=== PATIENT | male | born 1950 | race Caucasian/White ===

== ENCOUNTER 2024-04-23 12:35 | Emergency (ER) | payer OTHER, MEDICARE ==
[2024-04-23] MEDS: Sodium Chloride 0.9% 1,000 ML IV ONE ×3 (12:40→18:00)
[2024-04-23 12:49] LABS: EOSINOPHILS ABSOLUTE AUTO 0.01 K/uL (0.00-0.50); EOSINOPHILS PERCENT AUTO 0.2 % (0.0-5.0); HEMATOCRIT 31.1 % (39.0-49.0); HEMOGLOBIN 9.8 g/dL (13.1-16.8); LYMPHOCYTES ABSOLUTE AUTO 0.11 K/uL (0.50-3.50); MEAN CORPUSCULAR HEMOGLOBIN 34.6 pg (28.2-33.3); MEAN CORPUSCULAR HGB CONC 31.5 g/dL (31.7-36.0); MEAN CORPUSCULAR VOLUME 109.9 fL (84.0-98.0); MONOCYTES ABSOLUTE AUTO 0.66 K/uL (0.00-1.00); NEUTROPHILS PERCENT AUTO 85.8 % (45.0-80.0); PLATELET COUNT,PLT 69 K/uL (150-350); RED BLOOD CELL COUNT 2.83 M/uL (4.33-5.41); RED CELL DISTRIBUTION WIDTH 13.9 % (11.2-14.1); WHITE BLOOD CELL COUNT,WBC 5.5 K/uL (4.0-10.2)
[2024-04-23 13:03] LABS: INR 1.1 (0.9-1.1); PROTHROMBIN TIME 10.7 SEC (9.0-11.1)
[2024-04-23 13:03] LABS: LACTIC ACID 1.6 mmol/L (0.4-2.0)
[2024-04-23 13:12] LABS: ALANINE AMINOTRANSFERASE,ALT 12 U/L (12-78); ALBUMIN 3.1 g/dL (3.4-5.0); ALKALINE PHOSPHATASE 132 IU/L (46-116); ASPARTATE AMNIOTRANSFERASE,AST 17 U/L (15-37); BILIRUBIN TOTAL 0.8 mg/dL (0.2-1.0); BLOOD UREA NITROGEN,BUN 40 mg/dL (7-18); CALCIUM 8.2 mg/dL (8.5-10.1); CARBON DIOXIDE,CO2 25.8 mmol/L (21.0-32.0); CHLORIDE,CL 103 mmol/L (98-107); CREATININE 1.64 mg/dL (0.51-1.17); GLUCOSE RANDOM 99 mg/dL (70-99); PRO B-TYPE NATRIUR PEPT,BNPPRO 683 pg/mL (0-125); PROTEIN TOTAL,TP 6.4 g/dL (6.4-8.2); SODIUM,NA 137 mmol/L (136-145)
[2024-04-23 13:21] LABS: ANION GAP 15.2 meq/L (7-15); ESTIMATED GFR 43 mL/min (>=60)
[2024-04-23] MEDS ORDERED: Glucagon,Human Recombinant 1 MG Vial IM PRN (13:35)
[2024-04-23] MEDS ORDERED: 50% Dextrose in Water 50 ML Syringe IVPUSH PRN (13:35)
[2024-04-23] MEDS: Calcium Gluconate 10% 1 GM/10 ML SDV IVPUSH ONE (13:53)
[2024-04-23] MEDS: 50% Dextrose in Water 50 ML Syringe IVPUSH ONE (14:01)
[2024-04-23] MEDS: Insulin Regular, Human 100 Units/ML 3 ML Vial IV ONE (14:07)
[2024-04-23 15:22] LABS: APPEARANCE,URINE CLEAR; BILIRUBIN,URINE NEGATIVE (NEGATIVE); COLOR,URINE YELLOW; GLUCOSE,URINE NEGATIVE (NEGATIVE); KETONES,URINE NEGATIVE (NEGATIVE); LEUKOCYTE ESTERASE,URINE NEGATIVE (NEGATIVE); NITRITE,URINE NEGATIVE (NEGATIVE); OCCULT BLOOD,URINE NEGATIVE (NEGATIVE); PROTEIN,URINE TRACE mg/dL (NEGATIVE); UROBILINOGEN,URINE 0.2 E.U./dL (0.2-1.0)
[2024-04-23 15:23] LABS: AMORPHOUS SEDIMENT,URINE MODERATE /HPF (0/HPF); BACTERIA,URINE NOT SEEN /HPF (NONE TO FEW); EPITHELIAL CELLS,URINE FEW /LPF; MUCUS,URINE FEW /LPF (NEGATIVE); RBC,URINE 0-5 /HPF; WBC,URINE 0-5 /HPF
[2024-04-23] MEDS: Sodium Chloride 0.9% 250 ML IV ONE (15:59)
[2024-04-23] MEDS: Norepinephrine Bit/D5W Premix 250 ML IV SCH (16:04)
[2024-04-23 16:05] LABS: CALCIUM 7.9 mg/dL (8.5-10.1); CARBON DIOXIDE,CO2 23.6 mmol/L (21.0-32.0); CREATININE 1.6 mg/dL (0.51-1.17); EST CRCL DRUG DOSING (CG) 30.97 mL/min
[2024-04-23 16:08] LABS: POTASSIUM,K 5.6 mmol/L (3.5-5.1)
[2024-04-23 16:35] LABS: O2 DELIVERY DEVICE NASAL CANNULA; O2 SATURATION VENOUS 42 %; PCO2 VENOUS 52 mmHG (41-51); PH,VENOUS 7.25 (7.31-7.41); PO2 VENOUS 28 mmHG
[2024-04-23 16:36] LABS: BASE EXCESS VENOUS -5 mmol/L ((-2)-3); BICARBONATE,VENOUS 23 mmol/L (23-28)
[2024-04-23] MEDS ORDERED: Sodium Chloride 0.9% 500 ML IV SCH (18:00)
[2024-04-23] MEDS: Piperacillin/Tazobactam 2.25 GM in Sodium Chloride 0.9% 100 ML IV ONE (19:47)
[2024-04-23] MEDS: levETIRAcetam 500 MG/5 ML SDV IVPUSH ONE (19:47)
[2024-04-23] MEDS: Sodium Chloride 0.9% 10 ML Syringe FLUSH PRN (19:48)
[2024-04-23] MEDS: Sodium Chloride 0.9% 500 ML IV ONE (19:48)
[2024-04-23] MEDS: Piperacillin/Tazobactam 4.5 GM in Sodium Chloride 0.9% 100 ML IV SCH ×2 (19:48→19:54)
[2024-04-23 21:24] VITALS: BP 100/65; PULSE 55
== END 2024-04-23 20:21 | disposition critical access hospital (66) ==
LOC: LL.ED 12:35
DX: E87.5 Hyperkalemia (principal); I10 Essential (primary) hypertension; K21.9 Gastro-esophageal reflux disease without esophagitis; M19.90 Unspecified osteoarthritis, unspecified site; E78.00 Pure hypercholesterolemia, unspecified; Z88.1 Allergy status to other antibiotic agents; Z88.5 Allergy status to narcotic agent; Z88.8 Allergy status to other drugs, medicaments and biological substances; Z79.82 Long term (current) use of aspirin; Z79.899 Other long term (current) drug therapy
CPT/HCPCS: 36415; 70450; 71045; 80048; 80053; 81001; 82803; 82947; 83605; 83880; 84132; 84484; 85025; 85610; 87040; 93005; 93010; 96361; 96365; 96366; 96368; 96375; 99284; 99285-25; J0612; J1815-GY; J1953; J2543; J3370; J3490; J7030; J7040; J7050

== ENCOUNTER 2024-05-15 01:14 | Emergency (ER) | payer OTHER, MEDICARE ==
[2024-05-15] MEDS: Lactated Ringers 1,000 ML IV ONE (01:22)
[2024-05-15 01:42] LABS: BASOPHILS ABSOLUTE AUTO 0.01 K/uL (0.00-0.20); BASOPHILS PERCENT AUTO 0.4 % (0.0-2.0); EOSINOPHILS ABSOLUTE AUTO 0.14 K/uL (0.00-0.50); EOSINOPHILS PERCENT AUTO 5.4 % (0.0-5.0); HEMOGLOBIN 9.2 g/dL (13.1-16.8); LYMPHOCYTES ABSOLUTE AUTO 0.73 K/uL (0.50-3.50); MEAN CORPUSCULAR HEMOGLOBIN 33.6 pg (28.2-33.3); MEAN CORPUSCULAR HGB CONC 30.7 g/dL (31.7-36.0); MEAN CORPUSCULAR VOLUME 109.5 fL (84.0-98.0); MONOCYTES ABSOLUTE AUTO 0.31 K/uL (0.00-1.00); MONOCYTES PERCENT AUTO 11.9 % (2.0-14.0); NEUTROPHILS ABSOLUTE AUTO 1.42 K/uL (1.40-7.00); NEUTROPHILS PERCENT AUTO 54.3 % (45.0-80.0); PLATELET COUNT,PLT 79 K/uL (150-350); RED BLOOD CELL COUNT 2.74 M/uL (4.33-5.41); RED CELL DISTRIBUTION WIDTH 14.5 % (11.2-14.1); WHITE BLOOD CELL COUNT,WBC 2.6 K/uL (4.0-10.2)
[2024-05-15 02:06] LABS: ALANINE AMINOTRANSFERASE,ALT 12 U/L (12-78); ALBUMIN 3.2 g/dL (3.4-5.0); ALKALINE PHOSPHATASE 97 IU/L (46-116); ASPARTATE AMNIOTRANSFERASE,AST 11 U/L (15-37); BILIRUBIN TOTAL 0.4 mg/dL (0.2-1.0); BLOOD UREA NITROGEN,BUN 31 mg/dL (7-18); CALCIUM 8.5 mg/dL (8.5-10.1); CARBON DIOXIDE,CO2 31.5 mmol/L (21.0-32.0); CHLORIDE,CL 102 mmol/L (98-107); CREATININE 1.55 mg/dL (0.51-1.17); GLUCOSE RANDOM 82 mg/dL (70-99); PROTEIN TOTAL,TP 6.4 g/dL (6.4-8.2); SODIUM,NA 138 mmol/L (136-145)
[2024-05-15 02:11] LABS: ANION GAP 10.4 meq/L (7-15); ESTIMATED GFR 46 mL/min (>=60); POTASSIUM,K 5.9 mmol/L (3.5-5.1)
[2024-05-15] MEDS: Sodium Chloride 0.9% 1,000 ML IV SCH (02:34)
[2024-05-15] MEDS ORDERED: Sodium Chloride 0.9% 1,000 ML IV SCH ×2 (04:32→04:45)
[2024-05-15 06:38] VITALS: BP 122/78; PULSE 58
[2024-05-15 10:13] LABS: APPEARANCE,URINE CLEAR; BILIRUBIN,URINE NEGATIVE (NEGATIVE); COLOR,URINE YELLOW; GLUCOSE,URINE NEGATIVE (NEGATIVE); KETONES,URINE NEGATIVE (NEGATIVE); LEUKOCYTE ESTERASE,URINE NEGATIVE (NEGATIVE); NITRITE,URINE NEGATIVE (NEGATIVE); OCCULT BLOOD,URINE TRACE-INTACT (NEGATIVE); PROTEIN,URINE NEGATIVE (NEGATIVE); UROBILINOGEN,URINE 0.2 E.U./dL (0.2-1.0)
[2024-05-15 10:25] LABS: BACTERIA,URINE NOT SEEN /HPF (NONE TO FEW); EPITHELIAL CELLS,URINE FEW /LPF; HYALINE CASTS,URINE RARE; RBC,URINE 0-5 /HPF; WBC,URINE 0-5 /HPF
[2024-05-15 10:26] LABS: OTHER CRYSTALS,URINE FEW /HPF
[2024-05-15] MEDS ORDERED: cefTRIAXone 2 GM in Sodium Chloride 0.9% 100 ML IV SCH (11:00)
[2024-05-15] MEDS ORDERED: Azithromycin 500 MG in Sodium Chloride 0.9% 250 ML IV SCH (11:15)
[2024-05-15] MEDS: cefTRIAXone 2 GM Vial IVPUSH SCH (11:41)
[2024-05-15] MEDS: Sodium Chloride 0.9% 10 ML Syringe FLUSH PRN (11:45)
== END 2024-05-15 11:55 ==
LOC: LL.ED 01:14
DX: R41.82 Altered mental status, unspecified (principal); E87.5 Hyperkalemia; J18.9 Pneumonia, unspecified organism; I10 Essential (primary) hypertension; E78.00 Pure hypercholesterolemia, unspecified; K21.9 Gastro-esophageal reflux disease without esophagitis; Z79.899 Other long term (current) drug therapy; Z79.891 Long term (current) use of opiate analgesic; Z88.1 Allergy status to other antibiotic agents; Z88.5 Allergy status to narcotic agent; Z88.8 Allergy status to other drugs, medicaments and biological substances
CPT/HCPCS: 36415; 70450; 71045; 80053; 81001; 82947; 83605; 83735; 84132; 84484; 85025; 85610; 93005; 96361; 96374; 99285-25; J0696; J3490; J7030; J7120

== ENCOUNTER 2024-05-27 13:48 | Emergency (ER) | payer OTHER, MEDICARE ==
[2024-05-27] MEDS ORDERED: Sodium Chloride 0.9% 10 ML Syringe FLUSH PRN ×2 (13:52)
[2024-05-27 13:54] VITALS: PULSE 92
[2024-05-27] MEDS: Naloxone 0.4 MG/ML SDV IVPUSH ONE (14:05)
[2024-05-27 14:15] LABS: BASOPHILS ABSOLUTE AUTO 0.01 K/uL (0.00-0.20); BASOPHILS PERCENT AUTO 0.2 % (0.0-2.0); EOSINOPHILS ABSOLUTE AUTO 0.01 K/uL (0.00-0.50); EOSINOPHILS PERCENT AUTO 0.2 % (0.0-5.0); HEMATOCRIT 31.6 % (39.0-49.0); HEMOGLOBIN 9.5 g/dL (13.1-16.8); LYMPHOCYTES ABSOLUTE AUTO 0.26 K/uL (0.50-3.50); LYMPHOCYTES PERCENT AUTO 4.9 % (10.0-50.0); MEAN CORPUSCULAR HEMOGLOBIN 32.2 pg (28.2-33.3); MEAN CORPUSCULAR HGB CONC 30.1 g/dL (31.7-36.0); MEAN CORPUSCULAR VOLUME 107.1 fL (84.0-98.0); MONOCYTES ABSOLUTE AUTO 0.73 K/uL (0.00-1.00); MONOCYTES PERCENT AUTO 13.7 % (2.0-14.0); NEUTROPHILS ABSOLUTE AUTO 4.31 K/uL (1.40-7.00); PLATELET COUNT,PLT 70 K/uL (150-350); RED BLOOD CELL COUNT 2.95 M/uL (4.33-5.41); RED CELL DISTRIBUTION WIDTH 13.5 % (11.2-14.1); WHITE BLOOD CELL COUNT,WBC 5.3 K/uL (4.0-10.2)
[2024-05-27 14:38] VITALS: BP 111/60
[2024-05-27] MEDS: Lactated Ringers 1,000 ML IV ONE (14:42)
[2024-05-27 14:46] LABS: ALANINE AMINOTRANSFERASE,ALT 15 U/L (12-78); ALKALINE PHOSPHATASE 96 IU/L (46-116); ASPARTATE AMNIOTRANSFERASE,AST 14 U/L (15-37); BILIRUBIN TOTAL 0.6 mg/dL (0.2-1.0); BLOOD UREA NITROGEN,BUN 22 mg/dL (7-18); CALCIUM 8.9 mg/dL (8.5-10.1); CARBON DIOXIDE,CO2 30.5 mmol/L (21.0-32.0); CHLORIDE,CL 101 mmol/L (98-107); CREATININE 1.07 mg/dL (0.51-1.17); GLUCOSE RANDOM 95 mg/dL (70-99); MAGNESIUM 1.9 mg/dL (1.8-2.4); POTASSIUM,K 4.5 mmol/L (3.5-5.1); PRO B-TYPE NATRIUR PEPT,BNPPRO 1438 pg/mL (0-125); PROTEIN TOTAL,TP 6.6 g/dL (6.4-8.2); SODIUM,NA 130 mmol/L (136-145)
[2024-05-27 14:47] LABS: ESTIMATED GFR 72 mL/min (>=60)
[2024-05-27 14:50] LABS: INR 1.1 (0.9-1.1); PROTHROMBIN TIME 10.7 SEC (9.0-11.1)
[2024-05-27 15:10] LABS: APPEARANCE,URINE CLOUDY; BILIRUBIN,URINE NEGATIVE (NEGATIVE); COLOR,URINE YELLOW; GLUCOSE,URINE NEGATIVE (NEGATIVE); KETONES,URINE NEGATIVE (NEGATIVE); LEUKOCYTE ESTERASE,URINE NEGATIVE (NEGATIVE); NITRITE,URINE NEGATIVE (NEGATIVE); OCCULT BLOOD,URINE MODERATE (NEGATIVE); PROTEIN,URINE NEGATIVE (NEGATIVE); UROBILINOGEN,URINE 0.2 E.U./dL (0.2-1.0)
[2024-05-27 15:11] LABS: RBC,URINE 30-40 /HPF; WBC,URINE 0-5 /HPF
== END 2024-05-27 17:35 ==
LOC: LL.ED 13:48
DX: R41.82 Altered mental status, unspecified (principal); I10 Essential (primary) hypertension; K21.9 Gastro-esophageal reflux disease without esophagitis; Z86.16 Personal history of COVID-19; Z79.82 Long term (current) use of aspirin; Z79.2 Long term (current) use of antibiotics; Z79.899 Other long term (current) drug therapy; Z79.891 Long term (current) use of opiate analgesic; Z88.1 Allergy status to other antibiotic agents; Z88.5 Allergy status to narcotic agent; Z88.8 Allergy status to other drugs, medicaments and biological substances; Z95.5 Presence of coronary angioplasty implant and graft
CPT/HCPCS: 36415; 71045; 80053; 81001; 82947; 83605; 83735; 83880; 84484; 85025; 85610; 93005; 93010; 96361; 96374; 99284; 99285-25; J2310; J7120